=== PATIENT | male | born 1995 | race Caucasian/White ===

== ENCOUNTER 2019-12-11 10:15 | Emergency (ER) | payer OTHER, SELFPAY ==
[2019-12-11 10:32] VITALS: BP 131/86; PULSE 100; RESP 16; TEMP 37.4; O2SAT 100
--- NOTE | 2019-12-11 10:59 | ED.URI ---
HPI - URI/Sore Throat General Chief Complaint: Upper Respiratory Infection Stated Complaint: Sore Throat Source: patient Mode of arrival: ambulatory Limitations: no limitations History of Present Illness HPI Narrative: Patient is a 24-year-old male who presents complaining of cough, congestion, body aches and fever x3 days. Patient reports taking [id number] medications with limited relief. Patient denies significant medical history. Patient denies chest pain or shortness of breath at this time. MD elicited complaint: fever, cough and nasal congestion Related Data Home Medications Medication Instructions Recorded Confirmed No Home Medications 12/11/19 12/11/19 Allergies Allergy/AdvReac Type Severity Reaction Status Date / Time No Known Allergies Allergy Verified 12/11/19 10:31 Review of Systems Review of Systems: Narrative: CONSTITUTIONAL: Denies fever, chills, or sweats. EYES: Denies visual changes, redness, or discharge. ENT: Reports rhinorrhea, congestion, denies sore throat, or otalgia. CARDIOVASCULAR: Denies chest pain, palpitations, or edema. RESPIRATORY: Reports cough, denies dyspnea. GASTROINTESTINAL: Denies abdominal pain, nausea, vomiting, or diarrhea. GENITOURINARY: Denies dysuria or hematuria. SKIN: Denies rash or itching. MUSCULOSKELETAL: Denies back pain, joint pain, or myalgia. NEUROLOGIC: Denies headache, numbness, dizziness, or weakness. PSYCHIATRIC: Denies anxiety or depression. PMFSH Past Medical History Medical History (Updated 12/11/19 @ 11:08 by ELIJAH Durán) No significant family history No significant past medical history Surgical History Surgical History (Updated 12/11/19 @ 11:05 by ELIJAH Durán) No pertinent past surgical history Social History Social History (Updated 12/11/19 @ 11:06 by ELIJAH Durán) Smoking status: Never smoker Alcohol intake: current Alcohol use details: Socially Substance use: never Living arrangements: with family Occupation/Education: occupation Gender identity (if verbalized by the patient): Male Exam Narrative: Exam Narrative: GENERAL: Well-appearing, well-nourished, and in no acute distress. HEAD: Normocephalic, atraumatic. EYES: EOMI. No redness or drainage. Conjunctiva are normal. ENT: Mucous membranes pink and moist. Nares clear. No rhinorrhea. TMs normal bilaterally. Throat normal. Uvula midline. NECK: AROM. Supple. No lymphadenopathy. CHEST: No respiratory distress. Clear to auscultation. HEART: Regular rate and rhythm. No murmur appreciated. Normal peripheral pulses. EXTREMITIES: Normal range of motion. No edema. SKIN: Warm, dry, no rash. NEURO: No focal deficits. Alert and oriented x3. Gait steady. PSYCH: Normal affect. No signs of depression or anxiety. Course Vital Signs Vital signs: Vital Signs Temperature 37.4 C 12/11/19 10:32 Pulse Rate 100 12/11/19 10:32 Respiratory Rate 16 12/11/19 10:32 Blood Pressure 131/86 12/11/19 10:32 Pulse Oximetry 100 12/11/19 10:32 Temperature 37.4 C 12/11/19 10:32 Pulse Rate 100 12/11/19 10:32 Respiratory Rate 16 12/11/19 10:32 Blood Pressure 131/86 12/11/19 10:32 Pulse Oximetry 100 12/11/19 10:32 Reviewed. MDM - URI/Sore Throat MDM Narrative Medical decision making narrative: Patient most likely has viral respiratory illness at this time. Flu swab not completed as plan of treatment would not change. Patient to be treated for symptomatic illness. Patient aware of and agrees with plan of care. Patient is stable for discharge to home with outpatient follow-up as discussed. Work note to be provided. Differential Diagnosis Differential diagnosis: Likely upper respiratory infection Critical Care Time Critical Care Time Critical Care Time: No Discharge Plan Discharge Clinical Impression: Upper respiratory infection Qualifiers: URI type: unspecified viral URI Qualified Code(s): J06.9 - Acu
== END 2019-12-11 11:12 | disposition home or self-care (01) ==
PROVIDERS: Emergency Provider Nurse Practitioner; PCP Internal Medicine
DX: J06.9 Acute upper respiratory infection, unspecified (principal)
CPT/HCPCS: 99211; G0463